=== PATIENT | female | born 1980 | race Caucasian/White ===

== ENCOUNTER 2018-06-23 09:52 | Emergency (ER) | payer OTHER ==
[~2018-06-23] VITALS: Ht 175.3 cm; Wt 84.4 kg
[~2018-06-23 09:52] MED LIST: ALLEGRA30 MG; FLOMAX PO; FLONASE; NORTREL1 EAC1; PERCOCET 5-3251 EACH PO
[2018-06-23] MEDS ORDERED: CLARITIN10 MG PO (10:04)
[2018-06-23] MEDS ORDERED: AZELASTINE137 MCG/0. (10:05)
[2018-06-23] MEDS ORDERED: BLISOVI FE 1.51 EACH PO (10:05)
[2018-06-23 10:32] LABS: URINE BILIRUBIN NEGATIVE (Negative); URINE BLOOD 2+ (Negative); URINE CLARITY CLEAR; URINE COLOR YELLOW; URINE GLUCOSE-RANDOM NEGATIVE (Negative); URINE KETONES NEGATIVE (Negative); URINE LEUKOCYTES-REFLEX NEGATIVE (Negative); URINE NITRITE-REFLEX NEGATIVE (Negative); URINE PROTEIN NEGATIVE (Negative); URINE SPECIFIC GRAVITY <= 1.005 (1.005-1.030); URINE UROBILINOGEN 0.2 E.U./dl (0.2-1.0)
[2018-06-23 10:42] LABS: ABSOLUTE BASOPHILS 0.1 thou/uL (0.0-0.2); ABSOLUTE EOSINOPHILS 0.1 thou/uL (0.0-0.7); ABSOLUTE LYMPHOCYTES 1.9 thou/uL (0.8-5.3); ABSOLUTE MONOCYTES 0.3 thou/uL (0.0-1.2); ABSOLUTE NEUTROPHILS 3.9 thou/uL (1.6-8.1); BASOPHILS 1.1 %; EOSINOPHILS 1.1 %; HEMATOCRIT 39.7 % (37.0-47.0); HEMOGLOBIN 12.8 gm/dL (12.0-15.0); MCH 27.6 pg (26.0-34.0); MCHC 32.2 g/dL (28.0-37.0); MCV 85.7 fL (80.0-100.0); MONOCYTES 4.1 %; NUCLEATED RBCS 0 /100WBC; PLATELET COUNT* 356 thou/uL (150-400); POLYS 62.7 %; RBC 4.63 mil/uL (4.20-5.00); RDW-CV 14.8 % (10.5-14.5); WBC 6.3 thou/uL (4.0-11.0)
[2018-06-23 10:53] LABS: POTASSIUM 3.8 mmol/L (3.5-5.1)
[2018-06-23 10:54] LABS: ALBUMIN 3.4 g/dL (3.4-5.0); TOTAL BILIRUBIN 0.2 mg/dL (<0.1-1.0); TOTAL PROTEIN 7.5 g/dL (6.4-8.2)
[2018-06-23 10:59] LABS: SQUAMOUS 0-3 Few /LPF (0-3); URINE RBC 0-2 Rare /HPF (0-2); URINE WBC-REFLEX 0-5 Rare /HPF (0-5)
[2018-06-23 11:01] LABS: BACTERIA-REFLEX 1-9 Few /HPF (None Seen); CASTS None Seen /LPF (None Seen); CRYSTALS None Seen /LPF (None Seen); MUCUS None Seen strn/LPF (None Seen)
[2018-06-23 11:02] LABS: TRANSITIONAL EPITHEL CELL 0-3 Few /LPF (None Seen)
[2018-06-23] MEDS ORDERED: FLOMAX0.4 MG PO (12:43)
[2018-06-23] MEDS ORDERED: ONDANSETRON HCL4 M2 PO (12:43)
[2018-06-23] MEDS ORDERED: NABUMETONE 750750 M1 PO (12:43)
[2018-06-23] MEDS ORDERED: NORCO 5-325 TA1 EACH PO (12:43)
[2018-06-23 13:09] VITALS: BP 126/74
== END 2018-06-23 13:10 | disposition home or self-care (01) ==
LOC: M.ERS 09:52
PROVIDERS: Nurse Practitioner Family
DX: N20.2 Calculus of kidney with calculus of ureter (principal); N13.30 Unspecified hydronephrosis; Z88.1 Allergy status to other antibiotic agents; Z87.442 Personal history of urinary calculi; Z90.49 Acquired absence of other specified parts of digestive tract

== ENCOUNTER 2018-06-29 12:55 | Observation (INO) | payer OTHER ==
[~2018-06-29] VITALS: Ht 175.3 cm; Wt 83.9 kg
--- NOTE | ~2018-06-29 | H ---
[address] [address] HISTORY AND PHYSICAL Name: DANYA LEONARD Room: [address] Alfredito Troy#: [id number] Admission: 06/29/18 Attend Phys: Miriam Garcias, Discharge: 06/30/18 Date of : 84 Report #: [id number] THIS REPORT FOR: //name// Please refer to the History and Physical performed in the physician's office. By: [facility]8Medical Records Staff JUSTO /ROULA
[~2018-06-29 12:55] MED LIST changes: +AZELASTINE137 MCG/0.; +BLISOVI FE 1.51 EACH PO; +CLARITIN10 MG PO; +FLOMAX0.4 MG PO; -FLONASE; +Flonase NASAL; +NABUMETONE 750750 M1 PO; +NORCO 5-325 TA1 EACH PO; +ONDANSETRON HCL4 M2 PO
--- NOTE | 2018-06-29 16:12 | OP ---
[facility] [address] [place] [address] OPERATIVE REPORT Name: DANYA LEONARD Room: [facility].#: [id number] Admission: 06/29/18 Attend Phys: Miriam Garcias, Discharge: Date of : 84 Report #: [id number] THIS REPORT FOR: //name// CC: [facility] Miriam CASAS Physician staff DATE OF SERVICE: 06/29/2018 PREOPERATIVE DIAGNOSIS: Left proximal ureteral stone. POSTOPERATIVE DIAGNOSIS: Left proximal ureteral stone. PROCEDURE: Cystourethroscopy, left retrograde pyelogram, left ureteroscopy, left ureteral stent placement (6-Uzbek x 26 cm). SURGEON: Miriam Garcias M.D. ANESTHESIA: General. ESTIMATED BLOOD LOSS: None. COMPLICATIONS: None. SPECIMENS: None. INDICATIONS FOR PROCEDURE: The patient is a 37-year-old female who presented with a 4 mm stone in the left proximal ureter. Options were discussed and she opts for ureteroscopy. Risks of procedure were discussed including but not limited to infection; bleeding; injury to the urethra, bladder or ureter; need for secondary procedures; stent pain; cardiopulmonary complications. She voiced understanding and wished to proceed. DESCRIPTION OF PROCEDURE: After informed consent was obtained, the patient was taken back to the operating suite and placed supine. After induction of general anesthesia, she was placed in dorsal lithotomy position. Genitalia prepped and draped in standard fashion. Rigid cystoscopy was performed. Pancystoscopy revealed no mucosal tumors or lesions. Ureteral orifices were orthotopic in position. Retrograde was performed on the left with a 5-Uzbek catheter. This revealed a very tiny thin ureter to the level of the proximal ureter where the stone was seen. She had some moderate hydronephrosis behind this. A sensor wire was threaded up past the stone without any difficulty and the scope was removed after emptying the bladder. Using a dual lumen catheter, a second wire was placed. I attempted to thread the 11/13-Uzbek ureteral access sheath over one of the wires. This would not pass the level of the very distal ureter; [place] [address] OPERATIVE REPORT Name: DANYA LEONARD Room: [facility].#: [id number] Admission: 06/29/18 Attend Phys: Miriam Garcias, Discharge: Date of : 84 Report #: [id number] therefore, took the sheath apart and dilated with just the 11-Uzbek portion, again this would only pass the distal ureter and then met some resistance. I placed the sheath back together and tried to thread that, but again got caught up in the same spot. I left the sheath in its place, but it was tenuous as it was in the very distal most part of the ureter. Flexible ureteroscope was advanced into the ureter. There was a narrowed area in the mid portion of the ureter over the pelvic bone where I was unable to pass the scope due to that narrowing; therefore, decided to abort and just place a stent. The scope and sheath were backed out, leaving one wire in place. Retrograde was again performed to delineate the collecting system for stent placement. The wire was backloaded through the cystoscope and a 6-Uzbek x 26-cm double-J stent was threaded over the wire. Good curl was seen within the renal pelvis after adjusting the distal curl. Good placement was seen at the end of manipulation with good curl in the renal pelvis and good curl in the bladder. The bladder was then drained and the scope was removed. A 5 mL of lidocaine jelly were placed per urethra for local anesthesia and a 60 mg B and O suppository was placed per rectum for postoperative discomfort. She was awoken, extubated and taken to recovery in satisfactory condition. She will be dismissed home and follow up with me in a week or two for ureteroscopy. <ELECTRONICALLY SIGNED> By: Miriam Garcias MD 06/29/18 1612 [id number] Garcias MD /nt
--- NOTE | 2018-06-29 18:49 | NUR ---
PATIENT ADMITTED FROM PACU TO ROOM 105. ALERT AND ORIENTED. DROWSY. PATIENT STAYING THE NIGHT DUE TO SEVERE PAIN S/P LEFT URETERAL STENT PLACEMENT. VSS. SAT 95% ON RA. SCD'S IN PLACE. EDUCATED ON FALL PREVENTION. ORIENTED TO ROOM AND BED CONTROLS. FAMILY AT BEDSIDE. CALL LIGHT WITHIN REACH. WILL CONTINUE TO MONITOR.
[2018-06-29 20:00] VITALS: BP 134/88
[2018-06-30] VITALS: BP 133/71
[2018-06-30 04:00] VITALS: BP 120/71
--- NOTE | 2018-06-30 04:47 | NUR ---
PT REMAINED A&Ox4 THROUGHOUT SHIFT. VITALS STABLE. PAIN CONTROLLED WITH NORCO AND LEVSIN. UP WITH STAND BY ASSIST DUE TO TAKING PAIN MEDICATIONS. IV IN L HAND PATENT, INFUSING. EDUCATED ON FALL PRECAUTIONS. CALL LIGHT WITHIN REACH. HOURLY ROUNDING COMPLETE. WILL CONTINUE TO MONITOR.
[2018-06-30 07:30] VITALS: BP 128/66
[2018-06-30 09:30] VITALS: BP 128/66
[2018-06-30] MEDS ORDERED: PHENAZOPYRIDIN200 M2 PO (09:42)
--- NOTE | 2018-06-30 11:42 | NUR ---
ASSUMED CARE OF PATIENT AT APPROX 0730. ALERT AND ORIENTED X4. ASSESSMENT COMPLETED AND CHARTED. VSS ON ROOM AIR. NO COMPLAINTS OF NAUSEA OR SOA. PAIN HAS BEEN MANAGED WITH ORAL MEDICATION. FLUIDS STOPPED ORDERED AND SALINE LOCKED. PATIENTS PAIN UNDER CONTROL WITH ORAL MEDS AND READY TO DISCHARGE. PATIENT DISCHARGED AT 1130 WITH ALL PERSONAL BELONGINGS, PRESCRIPTIONS AND DISCHARGE INFORMATION.
== END 2018-06-30 11:30 | disposition home or self-care (01) ==
LOC: M.SUR 12:55 → M.ORTHSURG 18:02
PROVIDERS: ADMIT Urology
DX: N20.1 Calculus of ureter (principal); Z79.899 Other long term (current) drug therapy